=== PATIENT | male | born 1955 | race Caucasian/White ===

== ENCOUNTER 2017-02-01 20:14 | Emergency (ER) | payer BC ==
--- NOTE | ~2017-02-01 | ER ---
PATIENT'S NAME: LYNDSAY [facility]Y [facility] AGE: 61 Y [address] ROOM: [place] [address] LOCATION: [facility] ADMIT DATE: 02/01/2017 ER/Outpatient Report DISCHARGE DATE: 02/01/2017 FAMILY PHYSICIAN: Yash Hyatt MD ATTENDING PHYSICIAN: Isidoro Anderson Time of Arrival: 2013 hours. Time of Evaluation: 2024. CHIEF COMPLAINT: Right index finger laceration. HISTORY OF PRESENT ILLNESS: This is a 61-year-old male who presents to the ER with a right index finger laceration that happened prior to arrival. The patient states he was carving on some wood and he accidentally gouged his finger with one of his tools. He states he does have full range of motion of his finger. He is up-to-date on his tetanus shot. He denies any other problems at this time. ALLERGIES: NO KNOWN ALLERGIES. MEDICATIONS: Please see medication list in the nurse's notes. PAST MEDICAL HISTORY: Type 2 diabetes and hypercholesterolemia. He is on anticoagulant for his atrial fibrillation as well. SOCIAL HISTORY: Drinks alcohol occasionally. Denies any smoking use. REVIEW OF SYSTEMS: CONSTITUTIONAL: Denies any change in weight or fatigue. MUSCULOSKELETAL: No weakness or myalgias. HEMATOLOGIC: No easy bruising or bleeding. SKIN: Has a laceration to his right index finger. PHYSICAL EXAMINATION: VITAL SIGNS: Height 6 feet 5 inches, stated; weight 131 kilograms, taken; blood pressure is 168/87; pulse 81; respirations 16; temperature is 98.1 degrees tympanically; saturations 94% on room air. [place] Coma Score is 15. GENERAL: Alert, calm, well-developed male, in no acute distress. EXTREMITIES: No clubbing or cyanosis. He does have full range of motion of his right index finger. He has good sensation distally as well. PATIENT'S NAME: LYNDSAY HALEY [facility] AGE: 61 Y [address] ROOM: [place] [address] LOCATION: [facility] ADMIT DATE: 02/01/2017 ER/Outpatient Report DISCHARGE DATE: 02/01/2017 FAMILY PHYSICIAN: aYsh Hyatt MD ATTENDING PHYSICIAN: Isidoro Anderson NEURO: Cranial nerves 2 through 12 grossly intact. Gait is steady without assistance. SKIN: He has a 1.5 cm V-shaped laceration noted to the medial aspect of his right middle finger. ASSESSMENT: A 1.5 cm laceration to right distal index finger. PLAN: I did numb site with 1% lidocaine. Cleansed the site with Betadine, flushed with normal saline. Repaired the laceration using 4-0 Ethilon. The patient did tolerate this well. We will place the antibiotic ointment and bandage to the skin. He will be sent home with a wound care handout. He may take Tylenol or ibuprofen as needed for pain. He should follow up with his primary care physician in 7 to 10 days for suture removal. The patient understands and agrees with care. JOSUÉ CAMPOS PA-C FOR MD JUNG DAVIDSON/anaya /[id number] d: 02/02/17 0041 t: 02/07/17 1812, OUTPATIENT REPORT
== END 2017-02-01 20:42 | disposition disaster alternative care site (69) ==
LOC: GACC 20:14
PROC: 0HQFXZZ Repair Right Hand Skin, External Approach (ICD-10-PCS; principal; 2017-02-01)
DX: S61.210A Laceration without foreign body of right index finger without damage to nail, initial encounter (principal); I48.91 Unspecified atrial fibrillation; E11.9 Type 2 diabetes mellitus without complications; E78.00 Pure hypercholesterolemia, unspecified; Z79.899 Other long term (current) drug therapy; Z79.01 Long term (current) use of anticoagulants; W27.8XXA Contact with other nonpowered hand tool, initial encounter